=== PATIENT | female | born 1990 | race Caucasian/White ===

== ENCOUNTER 2022-08-26 09:51 | Emergency (ER) | payer OTHER ==
[~2022-08-26] VITALS: Ht 167.6 cm; Wt 119.3 kg
--- OUTSIDE RECORDS SUMMARY | 2022-08-26 09:55 | XMS ---
PreManage Notification: DOYLE MONTERROSO Security [employer] Worker Events No recent Security Events currently on file [facility] There are no care providers on record at this time. Roman has no Care Guidelines for this patient. Christine VISIT COUNT (12 MO.) 1 LYUDMILA Suazo TOTAL 1 NOTE: Visits indicate total known visits. ED/C VISIT TRACKING (12 MO.) 08/26/2022 09:52 LYUDMILA Smith OR TYPE: Emergency COMPLAINT: - FINGER LACERATION INPATIENT VISIT TRACKING (12 MO.) No inpatient visits to display in this time frame [email or web address]
[2022-08-26] MEDS ORDERED: ACETAMINOPHEN500 MG PO (11:17)
[2022-08-26] MEDS ORDERED: ASPIRIN81 MG PO (11:18)
[2022-08-26] MEDS ORDERED: CYCLOBENZAPRINE10 MG PO (11:18)
[2022-08-26] MEDS ORDERED: ZOLOFT50 MG PO (11:19)
== END 2022-08-26 12:35 | disposition home or self-care (01) ==
LOC: ED 09:51
DX: O9A.213 Injury, poisoning and certain other consequences of external causes complicating pregnancy, third trimester (principal); S61.213A Laceration without foreign body of left middle finger without damage to nail, initial encounter; Z88.0 Allergy status to penicillin; Z3A.34 34 weeks gestation of pregnancy; W45.8XXA Other foreign body or object entering through skin, initial encounter
CPT/HCPCS: 12001; 99282-25